=== PATIENT | male | born 1995 | race Caucasian/White ===

== ENCOUNTER 2024-09-25 22:51 | Emergency (ER) | payer SELFPAY ==
[~2024-09-25] VITALS: Ht 177.8 cm; Wt 76.0 kg
[2024-09-25 22:58] VITALS: BP 157/127
[2024-09-25 23:01] VITALS: BP 151/90
[2024-09-25 23:15] VITALS: BP 129/90
[2024-09-25] MEDS ORDERED: ASPIRIN 81 MG/TAB PO ONE (23:20)
[2024-09-25] MEDS ORDERED: ACETAMINOPHEN 500 MG TAB PO ONE (23:20)
[2024-09-25] MEDS ORDERED: KETOROLAC TROMETHAMINE 30 MG/ML SDV IV ONE (23:20)
[2024-09-25] MEDS ORDERED: SODIUM CHLORIDE 0.9% 1,000 ML IV ONE (23:20)
[2024-09-25 23:28] LABS: BASO% 0.6 % (0-3); EOS% 5.4 % (0-8); HEMATOCRIT 45.5 % (39.0-50.0); HEMOGLOBIN 16.1 g/dl (14.0-18.0); IMMATURE GRANULOCYTES 0.1 % (0.0-5.0); LYMPH% 38.8 % (15-41); MEAN CELL VOLUME 90.3 fL CALC (80.0-100.0); MEAN CORPUSCULAR HGB 31.9 pG CALC (26.0-32.0); MEAN CORPUSCULAR HGB CONC 35.4 g/dL CAL (32.0-36.0); MONO% 9.4 % (2-13); NEUT# 3.82 thou/uL (1.82-7.42); NEUT% 45.7 % (42-76); RED BLOOD COUNT 5.04 mill/uL (4.70-6.10); RED CELL DISTRI WIDTH 11.2 % (11.5-15.5)
[2024-09-25 23:30] VITALS: BP 122/78
[2024-09-25 23:43] LABS: ALBUMIN 4.9 g/dL (3.2-5.0); ALKALINE PHOSPHATASE 71 u/l (38-126); ANION GAP 14 (6-22 (CALC)); BILIRUBIN, TOTAL 0.6 mg/dL (0.2-1.3); BUN 15 mg/dL (9-20); BUN/CREATININE RATIO 16 (12-20 (CALC)); CARBON DIOXIDE 26 mmol/l (22-30); CHLORIDE 106 mmol/l (95-108); CREATININE 0.9 mg/dL (0.7-1.3); ESTIMATED GFR 120 ML/MIN (>=90 (CALC)); POTASSIUM 3.6 mmol/l (3.5-5.1); SGOT/AST 37 u/l (17-59); SODIUM 142 mmol/l (137-146); TOTAL PROTEIN 7.7 g/dL (6.3-8.2)
[2024-09-25 23:45] VITALS: BP 126/83
[2024-09-26] VITALS: BP 112/69
[2024-09-26 00:01] LABS: ACT PARTIAL THROMBO TIME 26.2 SECONDS (20.0-32.5); INTERNATIONAL NORMALIZED RATIO 0.9 RATIO (0.7-1.3)
[2024-09-26 00:02] LABS: D-DIMER 0.09 mg/L (0.19-0.60); PROTHROMBIN TIME 10.2 SECONDS (9.0-12.5)
[2024-09-26 00:16] VITALS: BP 115/85
[2024-09-26 00:30] VITALS: BP 115/81
[2024-09-26 00:41] VITALS: BP 115/81
== END 2024-09-26 00:41 | disposition home or self-care (01) | DRG 313 ==
LOC: ED 22:51
PROVIDERS: Family Medicine
DX: R07.9 Chest pain, unspecified (principal)